=== PATIENT | female | born 2005 | race Caucasian/White ===

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

== ENCOUNTER 2023-11-20 16:04 | Emergency (ER) | payer OTHER, SELFPAY ==
[2023-11-20 16:13] VITALS: BP 110/80; PULSE 90; RESP 20; TEMP 36.2; O2SAT 100
--- NOTE | 2023-11-20 16:56 | ED.URI ---
HPI - URI/Sore Throat General Chief Complaint: Upper Respiratory Infection Stated Complaint: Sore Throat/Headache Time Seen by Provider: 11/20/23 16:30 Source: patient, family, RN notes reviewed and old records reviewed Mode of arrival: ambulatory Limitations: no limitations History of Present Illness HPI Narrative: 18 year old female who presents to [facility] care accompanied by sister with complaints of headache since yesterday and sore throat today. Sister reports that patient had been exposed to COVID by her mother who tested positive November 14. Patient reports no fevers, no cough or any body aches, concerned she could have covid and has underlying health conditions. Patient reports that she had flu shot and COVID booster last January. MD elicited complaint: sore throat and other (headache) Onset (ago): day(s) (since yesterday) Pain scale (0-10): 3 Able to tolerate fluids by mouth: Yes Treatments prior to arrival: none Related Data Home Medications Medication Instructions Recorded Confirmed lamotrigine 200 mg tablet 200 mg PO BID 04/27/19 11/20/23 (Lamictal) norethindrone 1 mg-ethinyl 1 tablet PO DAILY 02/01/21 11/20/23 estradiol 10 mcg (24)-iron 10 mcg(2) tablet (Lo Loestrin Fe) cetirizine 10 mg tablet 10 mg PO DAILY 03/24/22 fluticasone propionate 50 intranasal 03/24/22 mcg/actuation nasal spray,suspension topiramate 50 mg tablet 50 mg PO DAILY 11/20/23 11/20/23 Allergies Allergy/AdvReac Type Severity Reaction Status Date / Time amoxicillin Allergy Unknown Verified 11/20/23 16:38 Review of Systems Review of Systems: CONSTITUTIONAL: Denies malaise, chills, sweats, or fever. EYES: Denies visual changes, redness, or discharge. ENT: Reports rhinorrhea, congestion,no sinus pain, otalgia and positive for sore throat. CARDIOVASCULAR: Denies chest pain, palpitations, or edema. RESPIRATORY: Reports no cough.? Denies dyspnea. GASTROINTESTINAL: Denies abdominal pain, nausea, vomiting, diarrhea SKIN: Denies rash or itching. MUSCULOSKELETAL: Denies myalgia. NEUROLOGIC:Reports headache. All systems reviewed & are unremarkable except as noted in HPI and below [facility] Past Medical History Medical History (Updated 11/21/23 @ 10:04 by Ivana Wang NP) Cerebral palsy Epilepsy Seizures Speech impediment Surgical History Surgical History (Updated 11/21/23 @ 10:00 by Ivana Wang NP) History of strabismus surgery History of tonsillectomy and adenoidectomy [place] teeth extracted Family History Family History Grandparent Breast cancer Hypertension Diabetes mellitus Heart disease Sibling Asthma Father Cerebrovascular accident Social History Social History Smoking status: Never smoker Alcohol intake: never Substance use: never Living arrangements: with family Gender identity (if verbalized by the patient): Female Comments At time of signature, agree with nursing past medical, surgical, social and family history. There is no relevant family history pertinent to the presenting complaint Exam Narrative: GENERAL: Well-appearing, well-nourished, and in no acute distress. HEAD: Normocephalic EYES: PERRLA, conjunctivae clear ENT: Nares clear, turbinates edematous and erythematous, clear discharge. Mucous membranes moist, reports frontal headache. TM pearly marcano with dull light reflex bilaterally; no tragal tenderness. Oropharynx erythematous without lesions. Tonsils not present and throat without exudate, no drooling, no hoarseness, no trismus, uvula midline.some post nasal drainage NECK: Supple. No lymphadenopathy CHEST: Clear to auscultation, breath sounds equal. No wheezing, rhonchi, rales, or stridor. No respiratory distress, speaks in full sentences.no cough noted SAO2 100% on room air HEART: Regular rate and rhythm. No murmur hear
[2023-11-20 17:01] LABS: EDSTREPNEGPOS1 Presumptive Negative
== END 2023-11-20 17:15 | disposition home or self-care (01) ==
PROVIDERS: Emergency Provider Registered Nurse; PCP Nurse Practitioner Family
DX: J02.9 Acute pharyngitis, unspecified (principal); B34.9 Viral infection, unspecified; Z20.822 Contact with and (suspected) exposure to COVID-19; G80.9 Cerebral palsy, unspecified; G40.909 Epilepsy, unspecified, not intractable, without status epilepticus
CPT/HCPCS: 87081; 87426; 87880; 99213; G0463

== ENCOUNTER 2024-05-26 18:26 | Emergency (ER) | payer OTHER, SELFPAY ==
--- OUTSIDE RECORDS SUMMARY | 2024-05-26 18:29 | XMS_ITS ---
Author Organization [facility] Address [address] [place] [address] Phone Care Team Providers Care Death Clearance Coordinator Name Role Phone Evelin Medel APRN, CNP Primary Care Provider [phone] [facility] Status:Enrolled (Active) Start date:05/18/2024 Enrollment date:05/18/2024 Related social drivers of health:Intimate Partner Violence, Social Connections, Alcohol Use, Tobacco Use, Financial Resource Strain,Depression, Stress, Physical Activity, Food Insecurity, Transportation Needs, Housing Stability, Utilities Continued Care and Services Coordination
--- OUTSIDE RECORDS SUMMARY | 2024-05-26 18:29 | XMS_ITS | Clinical Summary ---
Author Organization [facility] Address [address] [place] [address] Phone Care Team Providers Care Pre Coder Name Role Phone Medel, Evelin MAGNOLIA REGALADO Primary Care Provider [phone] Allergies No known active allergies Medications lamoTRIgine (LAMICTAL) 200 MG Tablet Take 200 mg by mouth 2 times daily. Active norethindrone-et hinyl estradiol (ORTHO-NOVUM 1-35 TAB, NORTREL 1-35 TAB) 1-35 MG-MCG Tablet Take 1 Tab by mouth daily. Active Encounters Date Type Department Care Team Description 04/20/2024 10:37 AM [facility] - 04/20/2024 12:52 PM [facility] Emergency [facility] [address] [place] [address] Shorty Bush MD Sprain of right wrist, initial encounter Discharge Disposition: Discharged to home or Selfcare 04/20/2024 Travel from Last 3 Months Social History Tobacco Use Types Packs/Day Years Used Date Smoking Tobacco: Never Passive Smoke Exposure: Yes Smokeless Tobacco: Never Tobacco Cessation:Counseling Given: Not Answered Alcohol Use Standard Drinks/Week Comments No 0 (1 standard drink = 0.6 oz pur e alcohol) Sexually Active Control Partners Comments Not Currently Comments No Sex and Gender Information Value Date Recorded Sex Assigned at Not on file Legal Sex Female 11:49 PM CDT Gender Identity Not on file Sexual Orientation Not on file Last Filed Vital Signs Vital Sign Reading Time Taken Comments Blood Pressure 119/72 04/20/2024 10:46 AM [facility] Pulse 79 04/20/2024 10:46 AM [facility] Temperature 36.8 C (98.2 F) 04/20/2024 10:46 AM [facility] Respiratory Rate 16 04/20/2024 10:48 AM [facility] Oxygen Saturation 100% 04/20/2024 10:46 AM [facility] Inhaled Oxygen Concentration - - Weight 93.9 kg (207 lb) 04/20/2024 10:46 AM [facility] Height 162.6 cm (5' 4 ) 04/20/2024 10:46 AM [facility] Body Mass Index 35.53 04/20/2024 10:46 AM [facility] Plan of Treatment Health Maintenance Due Date Last Done Comments Hepatitis C Virus (HCV) Screening 2003 Influenza Immunization (#1) 2023 100 09/2022, 02/05/2022, 02/08/2021, Additional history exists Respiratory Syncytial Virus (RSV) Immunization (Adult) (1 - 1-dose 75+ series) 2078 Hepatitis B Immunization Completed 004, 2003, 2003, Additional history exists Pneumococcal Immunization Combined Aged Out 2003, 2003, 2003 No longer eligible based on patient's age to complete this topic Measles Mumps Rubella (MMR) Immunization Discontinued 08/09/2008, 04/25/2004 Polio (IPV) Immunization Discontinued 009, 2003, 2003, Additional history exists Varicella Immunization Discontinued 11/25/2011, 2004 DTaP/Tdap/Td Immunization Discontinued 2014, 08/09/2008, 2003, Additional history exists Hepatitis A Immunization Discontinued 09/05/2014, 11/19 TdaP Immunization Completed 09/05/2014 Human Papillomavirus (HPV) Immunization Completed 11/03/2016, 05/14/2016, 02/19/2016 Meningococcal Immunization (ACWY) Completed 05/03/2019, 09/05/2014 Meningococcal B Immunization Completed 06/06/2019, 05/03/2019 SARS-COV-2 Immunization Completed 01/14/20 24, 01/23/2023, 01/23/2022, Additional history exists Rotavirus Immunization Aged Out No lo nger eligible based on patient's age to complete this topic Procedures Procedure Name Priority Date/Time Associated Diagnosis Comments XR HAND 3 OR MORE VIEWS RIGHT STAT 04/20/2024 11:16 AM [facility] XR WRIST 3 OR MORE VIEWS RIGHT STAT 04/20/2024 11:15 AM [facility] from Last 3 Months Results * XR HAND 3 OR MORE VIEWS RIGHT (04/20/2024 11:16 AM [facility]) Anatomical Region Laterality Modality UPPER EXTREMITY, hand Right Digital Ra diography 04/20/2024 12:2 7 PM [facility] Impressions 04/20/2024 12:29 PM [facility] IMPRESSION: No acute osseous abnormality. Narrative 04/20/2024 12:29 PM [facility] EXAM DESCRIPTION: XR HAND 3 OR MORE VIEWS RIGHT REASON FOR STUDY: fall while carring box today- pain to 1st through 5th MCP joints and wrist pain- worse with movement TECHNIQUE: 3 radiographic view(s) of the right hand . COMPARISON: None FINDINGS: BONES/JOINTS: There is no acute fracture, malalignment or osseous abnormality. The joint spaces are normal. SOFT TISSUES: Within normal limits. THIS IS AN ELECTRONICALLY VERIFIED FINAL REPORT 04/20/2024 12:27 PM - Electronically signed by Eduar Rowland M.D. JA: MARIFER Report ID: [id number] Reading Location: [id number] Procedure Note Eduar Rowland MD - 04/20/2024 EXAM DESCRIPTION: XR HAND 3 OR MORE VIEWS RIGHT REASON FOR STUDY: fall while carring box today- pain to 1st through 5th MCP joints and wrist pain- worse with movement TECHNIQUE: 3 radiographic view(s) of the right hand . COMPARISON: None FINDINGS: BONES/JOINTS: There is no acute fracture, malalignment or osseous abnormality. The joint spaces are normal. SOFT TISSUES: Within normal limits. THIS IS AN ELECTRONICALLY VERIFIED FINAL REPORT 04/20/2024 12:27 PM - Electronically signed by Eduar Rowland M.D. JA: MARIFER Report ID: [id number] Reading Location: [id number] IMPRESSION: No acute osseous abnormality. Peggy Will Page PAC IMG DIAGNOSTIC ORDERABLES Fi nal Result * XR WRIST 3 OR MORE VIEWS RIGHT (04/20/2024 11:15 AM [facility]) Anatomical Region Laterality Modality UPPER EXTREMITY, wrist Right Digital R adiography 04/20/2024 12:2 7 PM [facility] Impressions 04/20/2024 12:29 PM [facility] IMPRESSION: No acute osseous abnormality. Narrative 04/20/2024 12:29 PM [facility] EXAM DESCRIPTION: XR WRIST 3 OR MORE VIEWS RIGHT REASON FOR STUDY: fall while carring box today- pain to 1st through 5th MCP joints and wrist pain- worse with movement TECHNIQUE: 3 radiographic view(s) of the left hand and left wrist . COMPARISON: None FINDINGS: BONES/JOINTS: There is no acute fracture, malalignment or osseous abnormality. The joint spaces are normal. SOFT TISSUES: Within normal limits. THIS IS AN ELECTRONICALLY VERIFIED FINAL REPORT 04/20/2024 12:27 PM - Electronically signed by Eduar Rowland M.D. JA: MARIFER Report ID: [id number] Reading Location: [id number] Procedure Note Eduar Rowland MD - 04/20/2024 EXAM DESCRIPTION: XR WRIST 3 OR MORE VIEWS RIGHT REASON FOR STUDY: fall while carring box today- pain to 1st through 5th MCP joints and wrist pain- worse with movement TECHNIQUE: 3 radiographic view(s) of the left hand and left wrist . COMPARISON: None FINDINGS: BONES/JOINTS: There is no acute fracture, malalignment or osseous abnormality. The joint spaces are normal. SOFT TISSUES: Within normal limits. THIS IS AN ELECTRONICALLY VERIFIED FINAL REPORT 04/20/2024 12:27 PM - Electronically signed by Eduar Rowland M.D. JA: MARIFER Report ID: [id number] Reading Location: [id number] IMPRESSION: No acute osseous abnormality. Shorty Bush MD IMG DIAGNOSTIC ORDERABLE S Final Result from Last 3 Months Insurance [place] Care Teams Pre Coder Relationship Specialty Start Date End Date Medel, FABRICIO Waters CNP [address] [place] [address] PCP - General Family Medicine 06/21/21
--- OUTSIDE RECORDS SUMMARY | 2024-05-26 18:30 | XMS_ITS | Clinical Summary ---
Author Organization [facility] Address [address] [place] [address] Care Team Providers Care Manager Risk Management Name Role Phone Unavailable Primary Care Provider Unavailabl e Source Comments [facility],non-owned Affiliates and Associated Physician Practices is amultiple site organization consisting of ambulatory clinics and hospital sitesin [place], [place], [place] and [place]. This disclosure is being madepursuant to the Care Everywhere program and may not contain all information available regarding this patient. Last updated 18.[facility] Active Problems Problem Noted Date Diagnosed Date Chest pain Screening for cardiovascular condition Social History Tobacco Use Types Packs/Day Years Used Date Smoking Tobacco: Never Assessed Sex and Gender Information Value Date Recorded Sex Assigned at Not on file Gender Identity Not on file Sexual Orientation Not on file Plan of Treatment Health Maintenance Due Date Last Done Comments PAP SMEAR 2003 HIV SCREENING 2018 HPV VACCINE (1 - 3-dose series) 2018 CHLAMYDIA/GONORRHEA SCREENING 2019 MENINGOCOCCAL (Group B) VACC INE (1 of 2 - Standard) 2019 HEPATITIS C SCREENING 03/13/2021 DTAP/TDAP/TD VACCINES (1 - Tdap) 2022 HEPATITIS B VACCINE (1 of 3 - 19+ 3-dose series) 2022 COVID-19 VACCINE (1 - 2023-2 5 season) 2023 INFLUENZA VACCINE (#1) 2023 DEPRESSION SCREENING 04/20/2024 ZOSTER VACCINE (1 of 2) 2053 HIB VACCINE Aged Out No longer eligi ble based on patient's age to complete this topic MENINGOCOCCAL VACCINE Aged Out No génesis rosas eligible based on patient's age to complete this topic PNEUMOCOCCAL VACCINE Aged Out No long er eligible based on patient's age to complete this topic
--- OUTSIDE RECORDS SUMMARY | 2024-05-26 18:30 | XMS_ITS | Referral Summary ---
Author Organization [facility] Address [address] [place] [address] Care Team Providers Care Interactive Account Manager Name Role Phone Unavailable Primary Care Provider Unavailabl e Source Comments [facility],non-[facility] Affiliates and Associated Physician Practices is amultiple site organization consisting of ambulatory clinics and hospital sitesin [place], [place], [place] and [place]. This disclosure is being madepursuant to the Care Everywhere program and may not contain all information available regarding this patient. Last updated 18.[facility] Active Problems Problem Noted Date Diagnosed Date Chest pain Screening for cardiovascular condition Social History Tobacco Use Types Packs/Day Years Used Date Smoking Tobacco: Never Assessed Sex and Gender Information Value Date Recorded Sex Assigned at Not on file Gender Identity Not on file Sexual Orientation Not on file Plan of Treatment Not on file
--- OUTSIDE RECORDS SUMMARY | 2024-05-26 18:30 | XMS_ITS | Patient Health Summary ---
Author Organization [facility] Address [address] [place] [address] Care Team Providers Care Reservation Sales Agent Name Role Phone Unavailable Primary Care Provider Unavailabl e Note from [facility],non-owned Affiliates and Associated Physician Practices is amultiple site organization consisting of ambulatory clinics and hospital sitesin [place], [place], [place]. This disclosure is being madepursuant to the Care Everywhere program and may not contain all information available regarding this patient. Last updated 18.[facility] Active Problems Problem Noted Date Diagnosed Date Chest pain Screening for cardiovascular condition Social History Tobacco Use Types Packs/Day Years Used Date Smoking Tobacco: Never Assessed Sex and Gender Information Value Date Recorded Sex Assigned at Not on file Gender Identity Not on file Sexual Orientation Not on file
[2024-05-26 19:09] VITALS: BP 140/72; PULSE 98; RESP 18; TEMP 36.8; O2SAT 100
--- NOTE | 2024-05-26 19:37 | ED_ITS ---
HPI - Eye Problem General Chief complaint: Eye Problems Stated complaint: Right Eye Problem Source: patient Mode of arrival: ambulatory Limitations: no limitations History of Present Illness HPI Narrative: 19-year-old female presents complaint of a stye to the right upper eyelid. First noticed it at 1:00 a.m. today. Denies drainage, vision changes, eye pain. No treatment prior to arrival. chief complaint: eye pain Related Data Home Medications ?Medication ?Instructions ?Recorded ?Confirmed ?Last Taken ?Type lamotrigine 200 mg tablet 200 mg PO BID 04/27/19 05/26/24 Unknown History (Lamictal) norethindrone 1 mg-ethinyl 1 tablet PO DAILY 02/01/21 11/20/23 Unknown History estradiol 10 mcg (24)-iron 10 mcg(2) tablet (Lo Loestrin Fe) cetirizine 10 mg tablet 10 mg PO DAILY 03/24/22 05/26/24 Unknown History fluticasone propionate 50 intranasal 03/24/22 Unknown History mcg/actuation nasal spray,suspension topiramate 50 mg tablet 50 mg PO DAILY 11/20/23 05/26/24 Unknown History amitriptyline 25 mg tablet mg 05/26/24 Unknown History levetiracetam 1,000 mg tablet mg PO 05/26/24 Unknown History norethindrone (contraceptive) 0.35 mg 05/26/24 Unknown History mg tablet topiramate 100 mg tablet mg 05/26/24 Unknown History Allergies Allergy/AdvReac Type Severity Reaction Status Date / Time amoxicillin Allergy Unknown Verified 05/26/24 19:17 Review of Systems Review of Systems: CONSTITUTIONAL: Denies body aches, fever, chills EYES:Endorses swelling, redness and pain to eye; FB sensation, photophobia Denies visual changes ENT: Denies rhinorrhea, congestion, sore throat, or otalgia. CARDIOVASCULAR: Denies chest pain, palpitations RESPIRATORY: Denies cough or dyspnea. GASTROINTESTINAL: Denies abdominal pain, nausea, vomiting, or diarrhea. SKIN: Denies rash, itching, or wounds. MUSCULOSKELETAL: Denies back pain, joint pain, or myalgia. NEUROLOGIC: Denies headache, numbness, tingling, or weakness. All systems reviewed & are unremarkable except as noted in HPI and below PMFSH Past Medical History Medical History Speech impediment Cerebral palsy Epilepsy Seizures Surgical History Surgical History [place] teeth extracted History of tonsillectomy and adenoidectomy History of strabismus surgery Family History Family History Grandparent Breast cancer Hypertension Diabetes mellitus Heart disease Sibling Asthma Father Cerebrovascular accident Social History Social History Smoking status: Never smoker Alcohol intake: never Substance use: never Living arrangements: with family Gender identity (if verbalized by the patient): Female Comments At time of signature, I have reviewed and agree with nursing past medical, surgical, social and family history unless otherwise noted. Please see nursing chart for further information. There is no relevant family history pertinent to the presenting complaint Exam Narrative: GENERAL: Well-appearing HEAD: Normocephalic, atraumatic. EYES: No conjunctival injection. right upper lateral inner eye lid has internal hordeolum noted. PERRLA, EOMI. Lid eversion shows no foreign body. ENT: Mucous membranes pink and moist. No rhinorrhea. TMs normal bilaterally. Throat normal. Uvula midline. CHEST: Clear to auscultation. HEART: Regular rate and rhythm. SKIN: Warm, dry, no rash. Normal skin turgor. NEURO: No focal deficits. Alert and oriented x3 Course Course Emergency Course: Patient is aware of diagnosis, understands and agrees to treatment plan. Anticipatory guidance given. Patient agrees to follow-up as directed and is aware of reasons to seek care at the emergency department. Portions of this record may have been created with voice recognition software Level of Care: Express Care Visit Vital Signs Vital signs: Vital Signs Temperature 98.2 F 05/26/24 19:09 Pulse Rate 98 05/26/24 19:09 Respiratory Rate 18 05/26/24 19:09 Blood Pressure 140/72 05/26/24 19:09 Pulse Oximetry 100 05/26/24 19:09 Oxygen Delivery Room Air 05/26/24 19:09 Temperature 98.2 F 05/26/24 19:09 Pulse Rate 98 05/26/24 19:09 Respiratory Rate 18 05/26/24 19:09 Blood Pressure 140/72 05/26/24 19:09 Pulse Oximetry 100 05/26/24 19:09 Oxygen Delivery Room Air 05/26/24 19:09 MDM - Eye Problem Differential Diagnosis Differential diagnosis: Likely corneal abrasion, conjunctivitis, acute iritis and other Discharge Plan Discharge Clinical Impression: Internal hordeolum of right eye Patient Disposition: Home, Self-Care Condition: Stable Instructions: Antibiotic Kelly, Alfredo (ED) Additional Instructions: Apply warm, moist compresses on the affected area frequently (for 5 to 10 minutes three to five times per day) in order to help with drainage. Massage and gentle wiping of the affected eyelid after the warm compress can also help with drainage. You can use baby shampoo to wash the eye area Avoid wearing eye makeup Take antibiotic only if the right eye becomes red and swollen and painful If the lesion does not improve within one week, please follow up with an geography teacher for further management. [facility] [phone] [facility] [phone] [facility] [phone] [facility] [phone] Patient Language: Urugu[place] Prescriptions: New doxycycline hyclate 100 mg tablet 100 mg PO BID 5 Days Qty: 10 0RF No Action cetirizine 10 mg tablet 10 mg PO DAILY fluticasone propionate 50 mcg/actuation spray,suspension INTRANASAL topiramate 50 mg tablet 50 mg PO DAILY (DME) [email or web address] Card Home Tst Kit See Rx Instructions .Route Qty: 1 0RF Rx Instructions: As directed lamotrigine [Lamictal] 200 mg Tablet 200 mg PO BID Lo Loestrin Fe 1 mg-10 mcg (24)/10 mcg (2) tablet 1 tablet PO DAILY amitriptyline 25 mg tablet norethindrone (contraceptive) 0.35 mg tablet topiramate 100 mg tablet levetiracetam 1,000 mg tablet PO Follow-up/Referrals: Gianfranco,Evelin Morris APN [Primary Care Provider] - Time of Disposition: 19:41
== END 2024-05-26 19:46 | disposition home or self-care (01) ==
PROVIDERS: Emergency Provider Nurse Practitioner Family; PCP Nurse Practitioner Family
DX: H00.011 Hordeolum externum right upper eyelid (principal); Z79.899 Other long term (current) drug therapy
CPT/HCPCS: 99213; G0463

== ENCOUNTER 2024-12-08 11:01 | Emergency (ER) | payer OTHER, SELFPAY ==
[2024-12-08 11:08] VITALS: BP 120/64; PULSE 106; RESP 16; TEMP 36.4; O2SAT 100
--- NOTE | 2024-12-08 11:34 | ED.SKABFB ---
HPI - Skin/Abscess/Foreign Bdy General Chief complaint: Skin/Abscess/Foreign Body Stated complaint: Skin Sore,Right Leg Time Seen by Provider: 12/08/24 11:34 Source: patient Mode of arrival: ambulatory Limitations: no limitations History of Present Illness HPI narrative: 19-year-old female presents with complaint of redness to right lower leg with pain. Symptoms for 3 days. Redness getting progressively worse. Concern for Infected insect bite. all systems reviewed and negative except as noted above. Related Data Home Medications ?Medication ?Instructions ?Recorded ?Confirmed ?Last Taken ?Type lamotrigine 200 mg tablet 200 mg PO BID 04/27/19 05/26/24 Unknown History (Lamictal) cetirizine 10 mg tablet 10 mg PO DAILY 03/24/22 05/26/24 Unknown History fluticasone propionate 50 intranasal 03/24/22 Unknown History mcg/actuation nasal spray,suspension amitriptyline 25 mg tablet mg 05/26/24 Unknown History levetiracetam 1,000 mg tablet mg PO 05/26/24 Unknown History norethindrone (contraceptive) 0.35 mg 05/26/24 Unknown History mg tablet topiramate 100 mg tablet mg 05/26/24 Unknown History Allergies Allergy/AdvReac Type Severity Reaction Status Date / Time amoxicillin Allergy Unknown Verified 12/08/24 11:08 [facility] Past Medical History Medical History Speech impediment Cerebral palsy Epilepsy Seizures Surgical History Surgical History [place] teeth extracted History of tonsillectomy and adenoidectomy History of strabismus surgery Family History Family History Grandparent Breast cancer Hypertension Diabetes mellitus Heart disease Sibling Asthma Father Cerebrovascular accident Social History Social History Smoking status: Never smoker Alcohol intake: never Substance use: never Living arrangements: with family Gender identity (if verbalized by the patient): Female Comments At time of signature, agree with nursing past medical, surgical, social and family history. There is no relevant family history pertinent to the presenting complaint. Exam Narrative: GENERAL: This is a well-nourished, well-developed patient, in no apparent distress. HEAD: normocephalic, atraumatic. EYES: PERRL. Sclera clear/white. Vision is grossly intact. EARS: External ears normal NOSE: External nose normal NECK: Neck supple, non-tender without lymphadenopathy, masses or thyromegaly. CARDIOVASCULAR: Regular rate and rhythm without murmurs, gallops, or rubs. RESPIRATORY: Clear to auscultation. Breath sounds equal bilaterally. No wheezes, rales, or rhonchi. SKIN: warm, Dry, intact with no suspicious lesions or rash, good texture and turgor. Erythema to anterior aspect mid right nunn approximately 4 cm diameter with area to center that is a darker red, 1 cm diameter with tenderness on palpation. No fluctuance concerning for abscess. No drainage noted. Mild warmth. NEURO: awake, alert, and oriented to person, place and time. There were no obvious focal neurologic abnormalities. EXTREMITIES: No joint tenderness, effusion, or edema noted. Course Course Level of Care: Express Care Visit Vital Signs Vital signs: Vital Signs Temperature 36.4 C 12/08/24 11:08 Pulse Rate 106 H 12/08/24 11:08 Respiratory Rate 16 12/08/24 11:08 Blood Pressure 120/64 12/08/24 11:08 Pulse Oximetry 100 12/08/24 11:08 Oxygen Delivery Room Air 12/08/24 11:08 Temperature 36.4 C 12/08/24 11:08 Pulse Rate 106 H 12/08/24 11:08 Respiratory Rate 16 12/08/24 11:08 Blood Pressure 120/64 12/08/24 11:08 Pulse Oximetry 100 12/08/24 11:08 Oxygen Delivery Room Air 12/08/24 11:08 Reviewed MDM - Skin/Abscess/Foreign Bdy MDM Narrative Medical decision making narrative: will treat patient's symptoms with antibiotic. Concerned for infection. Cellulitis versus infected insect bite. Patient agrees with plan of care. Patient is well-appearing, nontoxic. Differential Diagnosis Differential diagnosis: Likely abscess of skin or subcutaneous tissue, cellulitis, insect bites, impetigo and contact dermatitis Discharge Plan Discharge Clinical Impression: Infected insect bite of right leg Patient Disposition: Home Condition: Stable Instructions: Antibiotic Form, Insect Bite or Sting (ED) Additional Instructions: take antibiotic as prescribed until gone. Apply prescription steroid cream 2 to 3 times a day to affected area. Take ibuprofen or Tylenol every 6-8 hours as needed for pain. See your doctor if not improving. Patient Language: [place] Prescriptions: New doxycycline hyclate 100 mg capsule 100 mg PO BID 7 Days Qty: 14 0RF triamcinolone acetonide 0.1 % cream 1 applic topical BID PRN (Reason: insect bite) Qty: 30 0RF No Action cetirizine 10 mg tablet 10 mg PO DAILY fluticasone propionate 50 mcg/actuation spray,suspension [employer] (DME) [employer] Card Home Tst Kit See Rx Instructions .Route Qty: 1 0RF Rx Instructions: As directed lamotrigine [Lamictal] 200 mg Tablet 200 mg PO BID amitriptyline 25 mg tablet norethindrone (contraceptive) 0.35 mg tablet topiramate 100 mg tablet levetiracetam 1,000 mg tablet PO Follow-up/Referrals: Medel,Evelin Morris APN [Primary Care Provider, Unknown] Time of Disposition: 11:39
--- OUTSIDE RECORDS SUMMARY | 2024-12-08 11:46 | XMS_ITS | Clinical Summary ---
Author Organization [facility] Address [address] [place] [address] Phone Care Team Providers Care Switching Operator Name Role Phone Gianfranco, Evelin SIERRAMAGNOLIA Patrick Primary Care Provider [phone] Allergies No known active allergies Medications lamoTRIgine (LAMICTAL) 200 MG Tablet Take 200 mg by mouth 2 times daily. Active norethindrone-et hinyl estradiol (ORTHO-NOVUM 1-35 TAB, NORTREL 1-35 TAB) 1-35 MG-MCG Tablet Take 1 Tab by mouth daily. Active Social History Tobacco Use Types Packs/Day Years [...] Comments Blood Pressure 119/72 04/20/2024 10:46 AM FINISH OPENER Pulse 79 04/20/2024 10:46 AM FINISH OPENER Temperature 36.8 C (98.2 F) 04/20/2024 10:46 AM FINISH OPENER Respiratory Rate 16 04/20/2024 10:48 AM FINISH OPENER Oxygen Saturation 100% 04/20/2024 10:46 AM FINISH OPENER Inhaled Oxygen Concentration - - Weight 93.9 kg (207 lb) 04/20/2024 10:46 AM FINISH OPENER Height 162.6 cm (5' 4) 04/20/2024 10:46 AM FINISH OPENER Body Mass Index 35.53 04/20/2024 10:46 AM FINISH OPENER Plan of Treatment Health Maintenance Due Date Last Done Comments Hepatitis C Virus (HCV) Screening 2003 Pap Smear 2024 Influenza Immunization (#1) 2024 10/0 09/2022, 02/05/2022, 02/08/2021, Additional history exists Respiratory [...] on patient's age to complete this topic Insurance [place] Care Teams Switching Operator Relationship Specialty Start Date End Date Evelin Medel APRN, [employer] [address] [place] [id number] PCP - General Family Medicine 06/21/21
== END 2024-12-08 11:46 | disposition home or self-care (01) ==
PROVIDERS: Emergency Provider Nurse Practitioner Family; PCP Nurse Practitioner Family
DX: S80.861A Insect bite (nonvenomous), right lower leg, initial encounter (principal); L08.9 Local infection of the skin and subcutaneous tissue, unspecified; W57.XXXA Bitten or stung by nonvenomous insect and other nonvenomous arthropods, initial encounter; G80.9 Cerebral palsy, unspecified; G40.909 Epilepsy, unspecified, not intractable, without status epilepticus
CPT/HCPCS: 99213; G0463